=== PATIENT | female | born 1945 ===

== ENCOUNTER 2025-04-25 22:55 | Emergency (ER) | payer BC, SELFPAY ==
[2025-04-25 23:07] VITALS: BP 165/74; PULSE 101; RESP 11; O2SAT 94
[2025-04-25 23:19] VITALS: RESP 12
[2025-04-26 00:03] VITALS: BP 125/58; PULSE 102; RESP 16; O2SAT 98
--- NOTE | 2025-04-26 00:11 | ECG_ITS ---
Test Date: 2025-04-26 00:11:57 Measurements Intervals [place] Rate: 98 P: 50 OR: 152 QRS: 63 QRSD: 130 T: 48 QT: 363 QTc: 465 Interpretive Statements SINUS RHYTHM WITH SINUS ARRHYTHMIA POSSIBLE LEFT ATRIAL ENLARGEMENT RIGHT BUNDLE BRANCH BLOCK BASELINE ARTIFACT- I, III, AVR, AVL, AVF ABNORMAL ECG No previous ECG available for comparison Electronically Signed On 04-26-2025 07:40:56 CDT by Dheeraj Bolton D.O.
[2025-04-26 00:29] LABS: Anion Gap 6 mmol/L (4-12); Blood Urea Nitrogen 32 mg/dL (7-17); Calcium 9.3 mg/dL (8.4-10.2); Carbon Dioxide 29 mmol/L (22-30); Chloride 94 mmol/L (98-107); Estimated CRCL calculation 29 ml/min; Estimated Glomerular Filt Rate 37; Glucose 309 mg/dL (65-110); Potassium 6.1 mmol/L (3.4-5.0); Sodium 129 mmol/L (137-145)
[2025-04-26 00:30] LABS: Hematocrit 29.7 % (37.0-47.0); Hemoglobin 9.6 g/dL (12.0-15.0); Immature Granulocyte Percent A 2.0 % (0-0.5); Lymphocytes Absolute Auto 2.05 K/mm3 (0.9-3.2); Mean Corpuscular HGB Conc 32.3 g/dl (32-36); Mean Corpuscular Hemoglobin 30.4 pg (26-34); Mean Corpuscular Volume 94.0 fl (80-100); Nucleated Red Blood Cells Absolute Auto 0.000 K/mm3 (0.0-0.012); Nucleated Red Blood Cells Perc 0.0 % (0.0-0.2); Platelet Count Result 334 k/mm3 (150-375); Red Blood Count 3.16 M/mm3 (4.2-5.4); White Blood Count 7.6 K/mm3 (4.5-10.0)
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
[2025-04-26 00:40] LABS: Creatine Kinase 179 U/L (30-135); Magnesium 2.4 mg/dL (1.6-2.3)
[2025-04-26] MEDS: SODIUM CHLORIDE 0.9% IV 1,000 ML 999 ML IV CONT ×2 (01:24→01:27)
[2025-04-26] MEDS: SODIUM BICARBONATE 8.4% 50 MEQ/50 ML SYRINGE IV PUSH (01:24)
[2025-04-26] MEDS: DEXTROSE 50% 25 GM/50 ML SYRINGE IV PUSH (01:25)
[2025-04-26] MEDS: CALCIUM GLUCONATE 1,000 MG/10 ML VIAL 1000 MG IV PUSH (01:25)
[2025-04-26] MEDS: SODIUM POLYSTYRENE SULFONONATE 15 GM/60 ML BTL 30 GM PO (01:25)
[2025-04-26] MEDS: INSULIN HUMAN REGULAR (*BKC) 100 UNITS/ML 10 UNITS IV PUSH (01:26)
[2025-04-26 03:19] VITALS: BP 126/69; PULSE 101; RESP 11; O2SAT 96
[2025-04-26 03:30] LABS: Anion Gap 4 mmol/L (4-12); Blood Urea Nitrogen 29 mg/dL (7-17); Calcium 9.1 mg/dL (8.4-10.2); Carbon Dioxide 27 mmol/L (22-30); Chloride 99 mmol/L (98-107); Estimated CRCL calculation 30 ml/min; Estimated Glomerular Filt Rate 39; Glucose 176 mg/dL (65-110); Potassium 5.3 mmol/L (3.4-5.0); Sodium 130 mmol/L (137-145)
--- NOTE | 2025-04-26 04:21 | PC.NURSE ---
This RN spoke with Charge at [facility] and updated about POC.
[2025-04-26 05:22] VITALS: BP 123/66; PULSE 96; RESP 13; TEMP 36.8; O2SAT 97
[2025-04-26 05:23] VITALS: BP 123/66; PULSE 96; RESP 13; TEMP 36.8; O2SAT 97
== END 2025-04-26 05:27 | disposition home or self-care (01) ==
PROVIDERS: Emergency Provider Student in an Organized Health Care Education/Training Program
DX: E87.5 Hyperkalemia (principal); E11.65 Type 2 diabetes mellitus with hyperglycemia; N18.9 Chronic kidney disease, unspecified; E11.22 Type 2 diabetes mellitus with diabetic chronic kidney disease; I12.9 Hypertensive chronic kidney disease with stage 1 through stage 4 chronic kidney disease, or unspecified chronic kidney disease
CPT/HCPCS: 36415; 80048; 82550; 82948; 83735; 85025; 93005; 96361; 96374; 96375; 99284; A9270; J0612; J1815; J7030